=== PATIENT | male | born 1990 | race Two or more races ===

== ENCOUNTER 2018-04-30 13:49 | Emergency (ER) | payer SELFPAY ==
[2018-04-30 14:20] VITALS: BP 116/54
--- NOTE | 2018-04-30 15:36 | ER Document Report ---
HPI - HPI Patient complains to provider of: rash Time Seen by Provider: 04/30/18 15:33 Pain Level: Denies Context: Patient complains of rash that started on his buttocks and in his left axilla. He states the rash started a day or 2 ago. He is staying at a hotel here for work. His roommate is also having similar symptoms. Patient denies fever, chills, nausea, vomiting, nuchal rigidity, vomiting, diarrhea, or any other infectious symptoms. - CONSTITUTIONAL Constitutional: DENIES: Fever, Chills Past Medical History - Social History Smoking Status: Former Smoker Frequency of alcohol use: Heavy Drug Abuse: None Family History: None Patient has suicidal ideation: No Patient has homicidal ideation: No Renal/ Medical History: Denies: Hx Peritoneal Dialysis Past Surgical History: Reports: Hx Appendectomy Vertical Provider Document - CONSTITUTIONAL Notes: PHYSICAL EXAMINATION: Reviewed vital signs and charting by RN GENERAL: Alert, interacts well. No acute distress. HEAD: Normocephalic, atraumatic. EYES: Pupils equal, round Extraocular movements intact. NECK: Full range of motion. Supple. Trachea midline. EXTREMITIES: Moves all 4 extremities spontaneously. No edema, No cyanosis. NEUROLOGICAL: Alert and oriented x3. Normal speech. PSYCH: Normal affect, normal mood. SKIN: Warm, dry, normal turgor. Very faint rash on the left buttock towards the crease with mild erythema. - INFECTION CONTROL TRAVEL OUTSIDE OF THE [place] IN LAST 30 DAYS: No Course - Vital Signs Vital signs: Temp Pulse Resp BP Pulse Ox 99.3 F 68 16 116/54 L 95 04/30/18 14:18 04/30/18 14:18 04/30/18 14:18 04/30/18 14:18 04/30/18 14:18 Discharge - Discharge Clinical Impression: Rash and nonspecific skin eruption Condition: Good Disposition: HOME, SELF-CARE Additional Instructions: You were seen in the emergency department this afternoon for a rash. It is unclear the cause of this rash but it is reassuring that it does not at all appear to be scabies or bedbugs. Your rash looks a fungal but it is very difficult to make a definitive diagnosis in the emergency department without seeing a buildings painter. You should buy some [id number] clotrimazole and apply that 3-4 times a day or as directed on the package. If that does not work after a few days or you start to see resolution of symptoms then try hydrocortisone cream which you can buy [id number] at some more like [facility]. If your rash gets worse and starts to spread even when using cream, you develop high fever, you start noticing red blisters under your skin, you pass out, or you have any other concerning symptoms please immediately return to the emergency department.
== END 2018-04-30 15:50 | disposition home or self-care (01) ==
LOC: ER 13:49
DX: R21 Rash and other nonspecific skin eruption (principal); Z87.891 Personal history of nicotine dependence
CPT/HCPCS: 99282